=== PATIENT | female | born 1995 | race Caucasian/White ===

== ENCOUNTER 2018-01-06 13:22 | Observation (INO) | payer OTHER ==
--- NOTE | 2018-01-06 17:46 | GHP ---
DATE OF ADMISSION: 01/06/2018 This is an OB triage visit note. ADMITTING DIAGNOSIS: Intrauterine at 29-4/7 weeks gestation with complaints of vaginal jerome n, uterine cramping, and a gush of fluid. HISTORY OF PRESENT ILLNESS: The patient is a 22-year-old, 3, para 1-0-1-1, who presents at 2 9-4/7 weeks gestation with the above complaints. She has received her care in [place]. She [place] [facility] and is here visiting her parents. She reports that on the morning of , she began having increased cramping, vaginal pain, and episode of nausea, vomiting, and with that had a gush of fluid and she was concerned that she had perhaps broken her water. She presented to labor and delivery for evaluation. On evaluation, she was negative nitrazine, had a dry perineum, and AmniSure was sent and was negative. A urinalysis was performed that demonstrated trace ketones, was negative for other things, and she was evaluated on the monitor and had no documented contractio ns. Speculum exam was performed. She had mild white discharge in the vault and was tender. f ibronectin was sent. BD Affirm was sent. Sterile speculum was placed and wet prep demonstrated clue cells. Cervix was long and closed. I am working on her record from [place]. However, her record from her last she delivered here. PAST MEDICAL HISTORY: The patient has significant medical problems of depression and anxiety, histor y of a suicide attempt in her teens. She had therapy and care in her last and denies [facility] issues. She has allergic rhinitis. No other disease or trauma. PAST SURGICAL HISTORY: She has no significant past surgical history. OBSTETRICAL HISTORY: One miscarriage and then her she delivered in February of 2015, was a n induction of labor secondary to oligohydramnios and decreased movement at 38 and 2. The vicky ent had a spontaneous vaginal delivery here at [facility]. Her course was complicated by hemorrhage, treated with medication and her hematocrit dropped to 25. She never received a blood transfusion. She did well ultimately. FAMILY HISTORY: No significant family history. SOCIAL HISTORY: She now lives in [facility] with her partner and her daughter. OBJECTIVE: VITAL SIGNS: Patient is afebrile. Vital signs are stable. heart tones were 130s, appropriate for gestational age. She had over an hour of monitoring with no contractions. PELVIC: Cervix is long and closed. Wet prep is significant for clue cells suggestive of bacterial vaginosis. Urinalysis is negative. A mniSure is negative. ASSESSMENT AND PLAN: A 22-year-old, 3, para 1-0-1-1, who is 29-4/7 weeks gestation with comp laints of contractions, leakage of fluid. No evidence of ongoing labor. fibro nectin is pending. If it is negative, patient will be discharged home with a prescription for Flagyl 500 mg p.o. b.i.d. for her suspected bacterial vaginosis and to follow up with her certification technician when she returns home. /[id number]/MODL
== END 2018-01-06 17:37 | disposition home or self-care (01) ==
LOC: FNSY 13:22 → FLD 13:42
PROVIDERS: ADMIT Obstetrics & Gynecology; ATTEND Obstetrics & Gynecology
DX: O60.02 Preterm labor without delivery, second trimester (principal); O99.89 Other specified diseases and conditions complicating pregnancy, childbirth and the puerperium; R10.2 Pelvic and perineal pain; Z3A.29 29 weeks gestation of pregnancy
CPT/HCPCS: 59025; G0378